=== PATIENT | male | born 1975 | race Caucasian/White ===

== ENCOUNTER → 2017-02-21 | Outpatient (CLI) | payer OTHER ==
[~2017-02-21] MED LIST: ALBUTEROL SULF8.5 GM IH; BACTRIM,SEPT1 TABLET PO; CLEOCIN300 MG PO; CYMBALTA30 MG PO; NEURONTIN100 MG PO; OXYCODONE HCL10 MG PO; PREDNISONE20 MG PO
== END | disposition home or self-care (01) ==
LOC: AMB 12:51
DX: M51.87 Other intervertebral disc disorders, lumbosacral region (principal); M54.16 Radiculopathy, lumbar region
CPT/HCPCS: 62304; 72132